=== PATIENT | male | born 1935 | race Caucasian/White ===

== ENCOUNTER 2018-12-11 11:53 | Emergency (ER) | payer MEDICARE ==
[2018-12-11] MEDS ORDERED: NS 0.9% 1000 ML** 1,000 ML IV ONE ×2 (12:49→12:50)
[2018-12-11] MEDS ORDERED: Ondansetron INJ* 2 MG/ML VIAL IV ONE (12:50)
[2018-12-11] MEDS ORDERED: Meclizine TAB* 12.5 MG PO ONE (12:51)
--- NOTE | 2018-12-11 12:59 | ED ---
Dizziness - HPI Summary HPI Summary: This patient is an 83 year old male presenting to the emergency department accompanied by his after he fell in the bathroom yesterday morning. He states he lost balance, hit his RUE, and then had trouble ambulating back to bed. Today he still feels woozy and as if the episode may reoccur. He compares the sensation to being drunk and having no control. He describes dizziness and weakness. The patient denies CP, n/v, ABD pain SOB, fever, chills, LOC, and head injury. Pt ambulated into the ED. He does not drink or smoke. Pt has prostate CA but is not undergoing chemo at this time, he denies CVA in the past. - History Of Current Complaint Chief Complaint: EDDizziness Stated Complaint: DIZZINESS/SYNCOPE/WEAKNESS Time Seen by Provider: 12/11/18 12:31 Hx Obtained From: Patient Onset/Duration: Still Present, Suddenly Timing: Constant Severity Initially: Moderate Severity Currently: Mild Character: Dizzy Associated Signs And Symptoms: Positive: Unsteady Gait, Other: - weakness and dizziness. Negative: Nausea, Vomiting - Allergies/Home Medications Allergies/Adverse Reactions: Allergies Allergy/AdvReac Type Severity Reaction Status Date / Time No Known Allergies Allergy Verified 07/05/18 15:03 Home Medications: Home Medications Amlodipine Besylate/Benazepril [Lotrel 5-20 mg] 1 cap PO DAILY 12/11/18 [ History Confirmed 12/11/18] Calcium Carb, Citrate/Vit D3 [Calcium+D3 Gradual Releas] 1 tab PO DAILY [History Confirmed 12/11/18] Cholecalciferol CAP/TAB(NF) [Vitamin D3 CAP/TAB (NF)] 5,000 unit PO DAILY [History Confirmed 12/11/18] metFORMIN* [Glucophage 500 MG TAB *] 500 mg PO DAILY 12/11/18 [History Confirmed 12/11/18] PMH/Surg Hx/FS Hx/Imm Hx Endocrine/Hematology History: Denies: Hx Diabetes Cardiovascular History: Reports: Hx Hypertension - ON MEDICATION FOR Denies: Hx Pacemaker/ICD GI History: Reports: Hx Gastroesophageal Reflux Disease - HISTORY OF IN THE PAST - NO MEDICATION FOR, Other GI Disorders - CONSTIPATION History: Denies: Hx Renal Disease Sensory History: Reports: Hx Contacts or Glasses - GLASSES, Hx Hearing Aid Opthamlomology History: Reports: Hx Contacts or Glasses - GLASSES Psychiatric History: Denies: Hx Panic Disorder - Cancer History Cancer Type, 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 REMOVAL OF SQUAMOUS CELL SCALP/EAR Hx Anesthesia Reactions: No - Immunization History Date of Influenza Vaccine: 08/2018 Immunizations Up to Date: Yes Infectious Disease History: No Infectious Disease History: Denies: Traveled Outside the [place] in Last 30 Days - Social History Alcohol Use: None Alcohol Amount: 2 DRINKS DAILY Substance Use Type: Reports: None Smoking Status (MU): Never Smoked Tobacco Review of Systems Negative: Chest Pain Negative: Shortness Of Breath Negative: Abdominal Pain, Vomiting, Nausea Musculoskeletal: Negative - head injury Positive: Other - RUE pain Neurological: Other - dizziness and trouble ambulating Positive: Weakness. Negative: Syncope All Other Systems Reviewed And Are Negative: Yes Physical Exam - Summary Physical Exam Summary: GENERAL: Patient is a well-developed and nourished M who is lying comfortable in the stretcher. Patient is not in any acute respiratory distress. HEAD AND FACE: Normocephalic EYES: PERRLA, EOMI x 2. EARS: Hearing grossly intact. MOUTH: Oropharynx within normal limits. NECK: Supple, trachea is midline, no adenopathy, no JVD, no carotid bruit. CHEST: Symmetric, no tenderness at palpation LUNGS: Clear to auscultation bilaterally. No wheezing or crackles. CVS: Regular rate and rhythm, S1 and S2 present, no murmurs or gallops appreciated. ABDOMEN: Soft, non-tender. Bowel sounds are normal. No abdominal abnormal pulsations. EXTREMITIES: Full ROM in all major joints, no edema, no cyanosis or clubbing. NEURO: Alert and oriented x 3. No acute neurological deficits. Speech is normal and follows commands. Cranial nerves II-XII grossly intact, no dysmetria finger to nose, nml heel to santamaria SKIN: Dry and warm : Triage Information Reviewed: Yes Vital Signs On Initial Exam: Initial Vitals Temp Pulse Resp BP Pulse Ox 97.6 F 64 18 125/83 96 12/11/18 11:59 12/11/18 11:59 12/11/18 11:59 12/11/18 11:59 12/11/18 11:59 Vital Signs Reviewed: Yes - Sherry Coma Scale Best Eye Response: 4 - Spontaneous Best Motor Response: 6 - Obeys Commands Best Verbal Response: 5 - Oriented Coma Scale Total: 15 Diagnostics - Vital Signs Vital Signs Temp Pulse Resp BP Pulse Ox 12/11/18 11:59 97.6 F 64 18 125/83 96 - Laboratory Result Diagrams: 12/11/18 13:02 12/11/18 13:02 Lab Statement: Any lab studies that have been ordered have been reviewed, and results considered in the medical decision making process. - Radiology CXR Radiology Interpretation Completed By: Radiologist Summary of Radiographic Findings: no active cardiopulmonary disease. ED physician has reviewed this report. - CT CT brain CT Interpretation Completed By: Radiologist Summary of CT Findings: No definite intracranial mass or hemorrhage. ED physician has reviewed this report. 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 Bloodwork obtained. UA obtained. She was given antivert, zofran, and IV fluids with improvement. CT Brain, reveals, No definite intracranial mass or hemorrhage. CXR reveals, per radiology, no active cardiopulmonary disease. I discussed results with patient and he/ reports feeling better. He is hemodynamically stable and safe for discharge. Strict return precautions given and he will otherwise follow up with his PCP. He was given a rx for zofran and antivert - Diagnoses Provider Diagnoses: Dizziness Discharge - Sign-Out/Discharge Documenting (check all that apply): Patient Departure Patient Received Moderate/Deep Sedation with Procedure: No - Discharge Plan Condition: Stable Disposition: HOME Prescriptions: Meclizine TAB* [Antivert 12.5 TAB*] 25 mg PO TID #30 tab Ondansetron TAB* [Zofran 4 MG Tab*] 4 mg PO Q6H PRN #12 tab PRN Reason: Nausea Patient Education Materials: Dizziness (ED) Referrals: Armando,Caesar J, DO [Primary Care Provider] - Additional Instructions: Follow up with your primary care physician in 1-3 days. RETURN TO THE EMERGENCY DEPARTMENT FOR CHANGING OR WORSENING SYMPTOMS. - Billing Disposition and Condition Condition: STABLE Disposition: Home - Attestation Statements Document Initiated by Clayton: Yes Documenting Scribe: Tyshawn Martinez Provider For Whom Clayton is Documenting (Include Credential): Howard Garcia MD Scribe Attestation: ITyshawn , scribed for Howard Garcia MD on 12/12/18 at 1048. Scribe Documentation Reviewed: Yes Provider Attestation: The documentation as recorded by the Tyshawn burnett accurately reflects the service I personally performed and the decisions made by me, Howard Garcia MD Status of Scribe Document: Viewed
[2018-12-11 13:12] LABS: Hematocrit 43 % (42-52); Hemoglobin 14.5 g/dl (14.0-18.0); Mean Corpuscular HGB Conc 34 g/dl (31-36); Mean Corpuscular Hemoglobin 28 pg (27-31); Mean Corpuscular Volume 84 fL (80-94); Mean Platelet Volume 8.8 fL (7.4-10.4); Platelet Count 134 10^3/ul (150-450); Red Blood Count 5.16 10^6/ul (4.00-5.40); Red Cell Distribution Width 16 % (10.5-15); White Blood Count 6.9 10^3/ul (3.5-10.8)
[2018-12-11 13:25] LABS: Activated Partial Thrombo Time 31.8 seconds (26.0-36.3); INR 0.98 (0.77-1.02)
[2018-12-11 14:03] LABS: Albumin 4.1 g/dL (3.2-5.2); Albumin/Globulin Ratio 1.4 (1-3); BUN/Creatinine Ratio 22.9 (8-20); Calcium 9.3 mg/dL (8.6-10.3); EGFR African American 77.8 (>60); EGFR Non-African American 64.3 (>60); Globulin 2.9 g/dL (2-4); Potassium 4.1 mmol/L (3.5-5.0); Total Bilirubin 1.1 mg/dL (0.2-1.0)
[2018-12-11 14:07] LABS: TSH (Thyroid Stimulating Horm) 1.38 mcIU/mL (0.34-5.60)
[2018-12-11 14:43] LABS: Urine Appearance Clear; Urine Bilirubin Negative (Negative); Urine Blood Negative (Negative); Urine Color Yellow; Urine Glucose Negative (Negative); Urine Ketones Negative (Negative); Urine Nitrite Negative (Negative); Urine Protein Negative (Negative); Urine Urobilinogen Negative (Negative)
[2018-12-11 15:39] VITALS: BP 142/70
[2018-12-11 16:28] LABS: Lymphocytes % 29 %; Monocytes % 8 %; Neutrophil % 53 %; Variant Lymph % 8 % (0-6)
[2018-12-11 16:33] LABS: ABS Basophils 0.1 10^3/ul (0-0.2); ABS Eosinophils 0.1 10^3/ul (0-0.6); ABS Neutrophils 3.6 10^3/ul (1.5-7.7)
== END 2018-12-11 15:38 | disposition home or self-care (01) ==
LOC: ED 11:53
DX: R42 Dizziness and giddiness (principal); I10 Essential (primary) hypertension; R53.1 Weakness
CPT/HCPCS: 36415; 70450; 71045; 80053; 81003; 83605; 83880; 84443; 84484; 85025; 85610; 85730; 93005; 96374; 99283; A9270-GY; J2405

== ENCOUNTER 2020-07-13 15:00 | Inpatient (IN) ==
[2020-07-13] MEDS ORDERED: NS 0.9% 1000 ml BAG 1,000 ML IV ONE ×2 (16:36→18:26)
[2020-07-13 16:59] LABS: ABS Lymphocytes 0.7 10^3/ul (1.0-4.8); ABS Monocytes 0.9 10^3/ul (0-0.8); ABS Neutrophils 9.6 10^3/ul (1.5-7.7); Hematocrit 38 % (42-52); Hemoglobin 12.7 g/dL (14.0-18.0); Lymphocyte % 6.1 %; Mean Corpuscular HGB Conc 34 g/dL (31-36); Mean Corpuscular Hemoglobin 27 pg (27-31); Mean Corpuscular Volume 82 fL (80-94); Mean Platelet Volume 7.9 fL (7.4-10.4); Platelet Count 299 10^3/uL (150-450); Red Blood Count 4.64 10^6 /uL (4.18-5.48); Red Cell Distribution Width 18 % (10-15); White Blood Count 11.1 10^3/uL (3.5-10.8)
[2020-07-13 17:44] LABS: Albumin 3.7 g/dL (3.2-5.2); Albumin/Globulin Ratio 1.1 (1-3); EGFR African American 5.5 (>60); EGFR Non-African American 4.5 (>60); Globulin 3.3 g/dL (2-4); Total Bilirubin 0.7 mg/dL (0.2-1.0)
[2020-07-13 17:52] LABS: Potassium 6.2 mmol/L (3.5-5.0)
[2020-07-13] MEDS ORDERED: Albuterol 2.5mg/3 ml (0.083%) NEB.SOLN INH ONE (18:15)
[2020-07-13] MEDS ORDERED: Dextrose 50% Syringe 50 ml 25 GM/50 ML SYRINGE IV PUSH ONE ×2 (18:16→18:17)
[2020-07-13 18:18] LABS: BUN/Creatinine Ratio 16.3 (8-20)
[2020-07-13 18:40] LABS: Urine Appearance Cloudy; Urine Bilirubin Negative (Negative); Urine Blood 2+ (Negative); Urine Color Yellow; Urine Glucose Negative (Negative); Urine Ketones Negative (Negative); Urine Nitrite Negative (Negative); Urine Protein Negative (Negative); Urine Specific Gravity 1.012 (1.010-1.030); Urine Urobilinogen Negative (Negative)
[2020-07-13 19:00] LABS: Urine Bacteria Absent (Absent); Urine Red Blood Cell 3+(>10/hpf) (Absent); Urine Squamous Epithelial Cell Present (Absent); Urine White Blood Cell 3+(>20/hpf) (Absent)
[2020-07-13] MEDS ORDERED: oxyCODONE/Acetamin 5/325 mg TAB PO PRN (19:59)
[2020-07-13] MEDS ORDERED: Ondansetron 4 mg VIAL 2 MG/ML 2 ml VIAL IV PRN (19:59)
[2020-07-13] MEDS ORDERED: NS 0.9% 1000 ml BAG 1,000 ML IV SCH (20:00)
[2020-07-13] MEDS: Polyethylene Glycol 3350 17 GM PACKET PO PRN (23:53)
[2020-07-13] MEDS: Heparin 5000 UNITS/ML 1 mL VIAL SUBCUT SCH (23:53)
[2020-07-14 01:22] LABS: BUN/Creatinine Ratio 18.9 (8-20); Calcium 8.8 mg/dL (8.6-10.3); EGFR African American 10.7 (>60); EGFR Non-African American 8.8 (>60); Potassium 4.1 mmol/L (3.5-5.0)
[2020-07-14] MEDS: Heparin 5000 UNITS/ML 1 mL VIAL SUBCUT SCH (05:27)
[2020-07-14 06:36] LABS: ABS Lymphocytes 0.5 10^3/ul (1.0-4.8); ABS Monocytes 0.5 10^3/ul (0-0.8); ABS Neutrophils 6.1 10^3/ul (1.5-7.7); Hematocrit 34 % (42-52); Hemoglobin 11.7 g/dL (14.0-18.0); Lymphocyte % 6.8 %; Mean Corpuscular HGB Conc 35 g/dL (31-36); Mean Corpuscular Hemoglobin 28 pg (27-31); Mean Corpuscular Volume 80 fL (80-94); Mean Platelet Volume 8.2 fL (7.4-10.4); Platelet Count 224 10^3/uL (150-450); Red Blood Count 4.19 10^6 /uL (4.18-5.48); Red Cell Distribution Width 18 % (10-15); White Blood Count 7.2 10^3/uL (3.5-10.8)
[2020-07-14 06:42] LABS: Ur Urea Nitrogen Concentration 874 mg/dL; Urine Sodium Concentration 28 mmol/L
[2020-07-14 06:49] LABS: Calcium 8.4 mg/dL (8.6-10.3); EGFR African American 18.2 (>60); Potassium 3.9 mmol/L (3.5-5.0)
[2020-07-14] MEDS: Polyethylene Glycol 3350 17 GM PACKET PO PRN (09:19)
[2020-07-14 14:35] LABS: % Iron Saturation 16 % (15-55); Iron 31 ug/dL (50-212); Total Iron Binding Capacity 193 mcg/dL (250-450); Transferrin 138 mg/dL (203-362); Unsaturated Iron Binding < 178 ug/dL
[2020-07-15 07:08] LABS: ABS Monocytes 0.6 10^3/ul (0-0.8); ABS Neutrophils 4.3 10^3/ul (1.5-7.7); Eosinophil % 0.2 %; Hematocrit 34 % (42-52); Hemoglobin 11.7 g/dL (14.0-18.0); Lymphocyte % 16.8 %; Mean Corpuscular HGB Conc 34 g/dL (31-36); Mean Corpuscular Hemoglobin 28 pg (27-31); Mean Corpuscular Volume 81 fL (80-94); Mean Platelet Volume 7.4 fL (7.4-10.4); Platelet Count 231 10^3/uL (150-450); Red Blood Count 4.25 10^6 /uL (4.18-5.48); Red Cell Distribution Width 18 % (10-15)
[2020-07-15 07:25] LABS: BUN/Creatinine Ratio 49.4 (8-20); Calcium 8.7 mg/dL (8.6-10.3); EGFR African American 100.7 (>60); EGFR Non-African American 83.2 (>60); Phosphorus 1.8 mg/dL (2.5-5.0); Potassium 3.7 mmol/L (3.5-5.0)
[2020-07-15 12:03] VITALS: BP 139/61
== END 2020-07-15 15:40 | disposition home health service (06) | DRG 723 ==
LOC: ED 15:00 → MED 19:59
PROVIDERS: ADMIT Student in an Organized Health Care Education/Training Program; ATTEND Internal Medicine

== ENCOUNTER 2020-09-23 20:44 | Inpatient (IN) ==
[~2020-09-23 20:44] MED LIST: fentaNYL PATCH 12 MCG/HR 1 PATCH TRANSDERM SCH
[2020-09-23] MEDS ORDERED: NS 0.9% 1000 ml BAG 1,000 ML IV ONE (21:00)
[2020-09-23] MEDS ORDERED: Magnesium Sulfate 2 gm BAG 2 GM/50 ML BAG IVPB ONE (21:01)
[2020-09-23] MEDS ORDERED: Potassium Chlor 10 meq TAB PO ONE (21:01)
[2020-09-23 21:22] LABS: ABS Basophils 0.1 10^3/ul (0-0.2); ABS Lymphocytes 2.3 10^3/ul (1.0-4.8); ABS Monocytes 0.6 10^3/ul (0-0.8); ABS Neutrophils 6.7 10^3/ul (1.5-7.7); Hematocrit 32 % (42-52); Hemoglobin 10.7 g/dL (14.0-18.0); Lymphocyte % 23.8 %; Mean Corpuscular HGB Conc 34 g/dL (31-36); Mean Corpuscular Hemoglobin 28 pg (27-31); Mean Corpuscular Volume 82 fL (80-94); Mean Platelet Volume 8.3 fL (7.4-10.4); Nucleated Red Blood Cells % 0.1; Platelet Count 247 10^3/uL (150-450); Red Blood Count 3.88 10^6 /uL (4.18-5.48); Red Cell Distribution Width 22 % (10-15); White Blood Count 9.6 10^3/uL (3.5-10.8)
[2020-09-23 21:40] LABS: BUN/Creatinine Ratio 34.5 (8-20); Calcium 8.8 mg/dL (8.6-10.3); EGFR African American 100.7 (>60); EGFR Non-African American 83.2 (>60); Magnesium 1.6 mg/dL (1.9-2.7)
[2020-09-23 21:43] LABS: Potassium 2.2 mmol/L (3.5-5.0)
[2020-09-23] MEDS: KCL 20 MEQ/100 ML IVPREMIX 20 MEQ/100 ML BAG IV SCH ×2 (21:52→23:58)
[2020-09-23] MEDS ORDERED: NS 0.9% 1000 ml BAG 1,000 ML IV SCH (23:45)
[2020-09-23] MEDS ORDERED: Enoxaparin 40 MG/0.4 ML SYR SUBCUT SCH (23:45)
[2020-09-24] MEDS: NS 0.9% 500 ml BAG 500 ML IV ONE ×2 (00:15→03:43)
[2020-09-24] MEDS ORDERED: NS 0.9% 1000 ml BAG 1,000 ML IV SCH (00:49)
[2020-09-24 01:54] LABS: Urine Appearance TURBID; Urine Color Red
[2020-09-24 01:55] LABS: Urine Specific Gravity 1.008 (1.010-1.030)
[2020-09-24] MEDS ORDERED: Potassium Chlor 10 meq TAB PO ONE (02:10)
[2020-09-24 02:20] LABS: Urine Bacteria Absent (Absent); Urine Red Blood Cell 3+(>10/hpf) (Absent); Urine White Blood Cell 3+(>20/hpf) (Absent)
[2020-09-24] MEDS ORDERED: fentaNYL PATCH 12 MCG/HR 1 PATCH TRANSDERM SCH (06:30)
[2020-09-24] MEDS: cefTRIAXone 1 gm/50 mL NS BAG 1 GM/50 ML BAG IVPB SCH (06:40)
[2020-09-24] MEDS: fentaNYL Patch Check Q Shift NOTE FOLLOW UP SCH ×2 (06:48→20:04)
[2020-09-24 07:21] LABS: BUN/Creatinine Ratio 27.8 (8-20); Calcium 8.3 mg/dL (8.6-10.3); EGFR African American 125.2 (>60); EGFR Non-African American 103.5 (>60); Magnesium 1.8 mg/dL (1.9-2.7)
[2020-09-24 07:28] LABS: Potassium 2.4 mmol/L (3.5-5.0)
[2020-09-24] MEDS ORDERED: Magnesium Sulfate 2 gm BAG 2 GM/50 ML BAG IVPB ONE (07:43)
[2020-09-24] MEDS: APALUTAMIDE 60 MG PO SCH ×4 (08:51→21:50)
[2020-09-24] MEDS: HYDROCORTISONE TOPICAL SCH ×2 (08:54→21:50)
[2020-09-24] MEDS: PRAMOXINE TOPICAL SCH ×2 (08:54→21:50)
[2020-09-24] MEDS: Multivitamins ADULT w/MIN LIQ 15 ML UDC PO SCH (10:31)
[2020-09-24] MEDS: KCL 20 MEQ/100 ML IVPREMIX 20 MEQ/100 ML BAG IV SCH ×4 (10:32→19:14)
[2020-09-24] MEDS ORDERED: Magnesium Sulfate IV 3 GM in NS 0.9% 100 ml BAG 100 ML IVPB ONE (11:00)
[2020-09-24] MEDS: Potassium Chlor 20 meq TAB.ER PO SCH ×2 (11:56→21:50)
[2020-09-24 14:22] LABS: Hematocrit 29 % (42-52); Hemoglobin 9.5 g/dL (14.0-18.0)
[2020-09-24 14:43] LABS: Magnesium 2.8 mg/dL (1.9-2.7)
[2020-09-24 14:47] LABS: Potassium 5.3 mmol/L (3.5-5.0)
[2020-09-24 16:46] LABS: Urine Appearance Turbid; Urine Bacteria Absent (Absent); Urine Bilirubin Negative (Negative); Urine Blood 3+ (Negative); Urine Glucose Negative (Negative); Urine Ketones Negative (Negative); Urine Nitrite Negative (Negative); Urine Protein 2+(100 mg/dL) (Negative); Urine Red Blood Cell 3+(>10/hpf) (Absent); Urine Urobilinogen Negative (Negative); Urine White Blood Cell 3+(>20/hpf) (Absent)
[2020-09-24 17:38] LABS: Magnesium 2.7 mg/dL (1.9-2.7)
[2020-09-24 17:43] LABS: Potassium 2.7 mmol/L (3.5-5.0)
[2020-09-24 17:47] LABS: Urine Color Red
[2020-09-24] MEDS ORDERED: KCL 20 MEQ/100 ML IVPREMIX 20 MEQ/100 ML BAG ONE (19:04)
[2020-09-24 20:22] LABS: Hematocrit 32 % (42-52); Hemoglobin 10.5 g/dL (14.0-18.0)
[2020-09-24 20:51] LABS: Magnesium 2.5 mg/dL (1.9-2.7); Potassium 3.1 mmol/L (3.5-5.0)
[2020-09-25 01:24] LABS: BUN/Creatinine Ratio 26.3 (8-20); Calcium 8.6 mg/dL (8.6-10.3); EGFR African American 110.9 (>60); EGFR Non-African American 91.7 (>60); Potassium 3.1 mmol/L (3.5-5.0)
[2020-09-25] MEDS: KCL 20 MEQ/100 ML IVPREMIX 20 MEQ/100 ML BAG IV SCH ×3 (02:52→10:17)
[2020-09-25] MEDS: cefTRIAXone 1 gm/50 mL NS BAG 1 GM/50 ML BAG IVPB SCH (05:47)
[2020-09-25 06:19] LABS: Hematocrit 29 % (42-52); Hemoglobin 9.4 g/dL (14.0-18.0); Mean Corpuscular HGB Conc 33 g/dL (31-36); Mean Corpuscular Hemoglobin 28 pg (27-31); Mean Corpuscular Volume 84 fL (80-94); Mean Platelet Volume 8.3 fL (7.4-10.4); Platelet Count 191 10^3/uL (150-450); Red Blood Count 3.42 10^6 /uL (4.18-5.48); Red Cell Distribution Width 23 % (10-15); White Blood Count 8.4 10^3/uL (3.5-10.8)
[2020-09-25 06:36] LABS: BUN/Creatinine Ratio 27.3 (8-20); Calcium 8.5 mg/dL (8.6-10.3); EGFR African American 115.9 (>60); EGFR Non-African American 95.8 (>60); Potassium 3.1 mmol/L (3.5-5.0)
[2020-09-25 09:14] LABS: ABS Lymphocytes 1.7 10^3/ul (1.0-4.8); ABS Monocytes 0.6 10^3/ul (0-0.8); ABS Neutrophils 6.1 10^3/ul (1.5-7.7); Eosinophil % 0.1 %; Lymphocyte % 20.2 %; Nucleated Red Blood Cells % 0.1; Polychromasia 1+
[2020-09-25] MEDS: Potassium Chlor 20 meq TAB.ER PO SCH ×3 (10:09→19:23)
[2020-09-25] MEDS: Multivitamins ADULT w/MIN LIQ 15 ML UDC PO SCH (10:09)
[2020-09-25] MEDS: fentaNYL Patch Check Q Shift NOTE FOLLOW UP SCH ×2 (10:14→18:41)
[2020-09-25] MEDS: APALUTAMIDE 60 MG PO SCH ×2 (10:17→12:10)
[2020-09-25] MEDS: HYDROCORTISONE TOPICAL SCH ×2 (10:18→19:24)
[2020-09-25] MEDS: PRAMOXINE TOPICAL SCH ×2 (10:18→19:24)
[2020-09-25 15:23] LABS: Magnesium 1.9 mg/dL (1.9-2.7); Potassium 3.7 mmol/L (3.5-5.0)
[2020-09-25] MEDS ORDERED: KCL 20 MEQ/100 ML IVPREMIX 20 MEQ/100 ML BAG IV ONE (17:49)
[2020-09-25] MEDS ORDERED: Magnesium Sulfate 2 gm BAG 2 GM/50 ML BAG IVPB ONE (17:51)
[2020-09-25 22:04] LABS: Potassium 3.9 mmol/L (3.5-5.0)
[2020-09-26] MEDS: cefTRIAXone 1 gm/50 mL NS BAG 1 GM/50 ML BAG IVPB SCH (05:35)
[2020-09-26] MEDS ORDERED: KCL 20 MEQ/100 ML IVPREMIX 20 MEQ/100 ML BAG IV ONE (06:12)
[2020-09-26] MEDS: fentaNYL Patch Check Q Shift NOTE FOLLOW UP SCH (07:09)
[2020-09-26] MEDS: Multivitamins ADULT w/MIN LIQ 15 ML UDC PO SCH (07:47)
[2020-09-26] MEDS: Potassium Chlor 20 meq TAB.ER PO SCH ×2 (07:48→12:59)
[2020-09-26] MEDS: HYDROCORTISONE TOPICAL SCH (07:50)
[2020-09-26] MEDS: PRAMOXINE TOPICAL SCH (07:50)
[2020-09-26 08:14] LABS: BUN/Creatinine Ratio 28.2 (8-20); Calcium 8.7 mg/dL (8.6-10.3); EGFR African American 114.2 (>60); EGFR Non-African American 94.4 (>60); Magnesium 1.9 mg/dL (1.9-2.7); Potassium 3.6 mmol/L (3.5-5.0)
[2020-09-26] MEDS ORDERED: Magnesium Sulfate 2 gm BAG 2 GM/50 ML BAG IVPB ONE (10:05)
[2020-09-26 12:17] VITALS: BP 126/75
== END 2020-09-26 17:59 | disposition home or self-care (01) | DRG 640 ==
LOC: ED 20:44 → MEDTELE 23:35
PROVIDERS: ADMIT Student in an Organized Health Care Education/Training Program; ATTEND Internal Medicine